=== PATIENT | female | born 1980 | race Caucasian/White ===

== ENCOUNTER → 2016-11-16 | Outpatient (CLI) | payer BC ==
[2016-11-16 10:14] LABS: Basophils % (A) 1 %; CH 32.3; CHCM 32.6; Eosinophils % (A) 1 %; HCT 42.5 % (34.0-46.0); HDW 2.31; HGB 13.4 gm/dL (11.4-16.0); Luc # (Auto) 0.16; Luc % (Auto) 3; Lymphocytes # (A) 1.3 k/uL (1.0-4.8); Lymphocytes % (A) 24 %; MCH 31.5 pg (25.0-35.0); MCHC 31.7 g/dL (31.0-37.0); MCV 99.5 fL (80.0-100.0); Mean Platelet Volume 8.4; Monocytes # (A) 0.4 k/uL (0-1.0); Monocytes % (A) 6 %; Neutrophils # (A) 3.6 k/uL (1.3-7.7); Neutrophils % (A) 66 %; RBC 4.27 m/uL (3.80-5.40); RDW 12.5 % (11.5-15.5); WBC 5.5 k/uL (3.8-10.6); WBC (Perox) 5.83
[2016-11-16 10:41] LABS: Anion Gap 8 mmol/L; Blood Urea Nitrogen 9 mg/dL (7-17); Calcium 9.3 mg/dL (8.4-10.2); Carbon Dioxide 24 mmol/L (22-30); Chloride 106 mmol/L (98-107); Cholesterol 175 mg/dL (<200); Glucose 85 mg/dL (74-99); HDL Cholesterol 68 mg/dL (40-60); Non-African American GFR(MDRD) >60 (>60 ml/min/1.73 sqM); Potassium 4.7 mmol/L (3.5-5.1); Sodium 138 mmol/L (137-145); Triglycerides 57 mg/dL (<150)
== END | disposition home or self-care (01) ==
LOC: LABWHC1 09:45
PROVIDERS: ATTEND Nurse Practitioner Family
DX: R53.83 Other fatigue (principal); Z13.29 Encounter for screening for other suspected endocrine disorder; Z13.220 Encounter for screening for lipoid disorders; Z13.21 Encounter for screening for nutritional disorder
CPT/HCPCS: 36415; 80048; 80061; 82306; 84439; 84443; 85025

== ENCOUNTER → 2017-04-17 | Outpatient (CLI) | payer BC ==
--- NOTE | 2017-04-17 16:54 | XR ---
Abdomen HISTORY: Constipation, irregular menses Frontal view of the abdomen on 2 images Bone mineralization, joint spaces and alignment are maintained. Lung bases are clear. There is an ind eterminate calcification in the right upper quadrant measuring 8 mm. No pneumoperitoneum or bowel obs truction. IMPRESSION: Possible gallstone right upper quadrant. Nonobstructive bowel gas pattern.
--- NOTE | 2017-04-18 07:47 | US ---
EXAMINATION TYPE: US pelvic complete DATE OF EXAM: 04/17/2017 COMPARISON: NONE CLINICAL HISTORY: N92.6 Irregular Menses, R14.0 Gaseous. Patient stated is 23 days late for menses; f amily history of colon cancer; constipated with low back pain: TECHNIQUE: Transvaginal (TV) Date of LMP: approximately first week of February EXAM MEASUREMENTS: Uterus: 8.9 x 5.4 x 4.6 cm Endometrial Stripe: 0.7 cm Right Ovary: 3.8 x 2.1 x 3.1 cm Left Ovary: 3.3 x 2.8 x 2.2 cm 1. Uterus: Anteverted; multiple Nabothian cysts in CX with largest complex cyst = 1.1 x 1.0 x 0.8cm; ADALBERTO hypoechoic oval mass = 0.5 x 0.8 x 0.5cm (possible fibroid) 2. Endometrium: unable to correlate thickness with early February LMP 3. Right Ovary: follicular cyst = 2.5 x 2.2 x 1.9cm 4. Left Ovary: multifollicular with largest = 1.6 x 1.2 x 1.3cm (color flow is seen in bilateral ovary) 5. Bilateral Adnexa: wnl 6. Posterior cul-de-sac: small amount of free fluid = 0.8 x 2.2 x 2.0cm IMPRESSION: 1. Bilateral functional ovarian cysts. 2. Small amount of free fluid within the cul-de-sac. 3. Cervical nabothian cysts.
== END | disposition home or self-care (01) ==
LOC: RADUSWWP 14:55
PROVIDERS: ATTEND Family Medicine
DX: K59.00 Constipation, unspecified (principal); N83.201 Unspecified ovarian cyst, right side; N83.202 Unspecified ovarian cyst, left side; N88.8 Other specified noninflammatory disorders of cervix uteri
CPT/HCPCS: 74000; 76830

== ENCOUNTER → 2017-04-27 | Outpatient (CLI) | payer BC ==
--- NOTE | 2017-04-27 08:24 | US ---
EXAMINATION TYPE: US abdomen complete DATE OF EXAM: 04/27/2017 COMPARISON: X Ray 2017 CLINICAL HISTORY: K80.80 Other cholelithiasis without obstruction; epigastric pain radiating to back. EXAM MEASUREMENTS: Liver Length: 15.3 cm Gallbladder Wall: 0.2 cm CBD: 0.3 cm Spleen: 7.5 cm Right Kidney: 9.3 x 5.1 x 3.8 cm Left Kidney: 9.4 x 4.8 x 5.2 cm Pancreas: wnl Liver: wnl Gallbladder: fold at fundus with non mobile,shadowing stone within, stone size = 0.9 x 0.8 x 0.4; wa ll thickness is wnl Evidence for sonographic Parr's sign: No CBD: wnl Spleen: wnl Right Kidney: wnl Left Kidney: wnl Upper IVC: wnl Abd Aorta: wnl IMPRESSION: Cholelithiasis without sonographic evidence of cholecystitis.
== END | disposition home or self-care (01) ==
LOC: RADUSWWP 07:07
PROVIDERS: ATTEND Family Medicine
DX: K80.20 Calculus of gallbladder without cholecystitis without obstruction (principal)
CPT/HCPCS: 76700

== ENCOUNTER 2017-05-22 07:41 | Day surgery (SDC) | payer BC ==
[2017-05-17 11:13] VITALS: BMI 27.1
[~2017-05-22 07:41] MED LIST: DEXAMETHASONE SOD PHOSPHATE 10 MG/ML 1 ML VIAL IV ONE; HEPARIN SODIUM,PORCINE 5,000 UNIT/ML 1 ML VIAL SQ ONE; LACTATED RINGERS 1,000 ML IV SCH; LIDOCAINE 1% 20 ML VIAL (10MG/ML) FOR IV START INTRADERMA PRN; MIDAZOLAM 2 MG/2 ML VIAL IV PRN; SCOPOLAMINE 1.5MG/72HR PATCH TRANSDERM ONE; ceFAZolin 2 GM in SODIUM CHLORIDE 0.9% 100 ML IVPB ONE
[2017-05-22 08:11] VITALS: RESP 16
[2017-05-22] MEDS: ONDANSETRON 4 MG/2 ML VIAL IVP ONE ×2 (08:18→13:26)
--- NOTE | 2017-05-22 09:24 | P.GSHP ---
History of Present Illness H&P Date: 05/22/17 Chief Complaint: Right upper quadrant pain This is a 28-year-old female who's had complaints of right quadrant pain. Her recent(s) was evidence of cholelithiasis. She presents today for laparoscopic cholecystectomy. Past Medical History Additional Past Medical History / Comment(s): gallstones,freq constipation History of Any Multi-Drug Resistant Organisms: None Reported Additional Past Surgical History / Comment(s): LEEP procedure Past Anesthesia/Blood Transfusion Reactions: No Reported Reaction Additional Past Anesthesia/Blood Transfusion Reaction / Comment(s): no hx blood transfusion Smoking Status: Former smoker - Past Family History Mother Family Medical History: Cancer Additional Family Medical History / Comment(s): breast Father Additional Family Medical History / Comment(s): pt states "has clotting disorder ,does not know name." Sister(s) Additional Family Medical History / Comment(s): pt states "has clotting disorder ,does not know name." Medications and Allergies Home Medications Medication Instructions Recorded Confirmed Type No Known Home Medications [No 05/17/17 05/17/17 History Known Home Medications] Allergies Allergy/AdvReac Type Severity Reaction Status Date / Time No Known Allergies Allergy Verified 05/17/17 11:04 Surgical - Exam Vital Signs Temp Pulse Resp BP Pulse Ox 96.8 F L 74 16 103/70 99 05/22/17 08:04 05/22/17 08:04 05/22/17 08:04 05/22/17 08:04 05/22/17 08:04 - General well developed, no distress - Eyes PERRL - ENT normal pinna - Neck no masses - Respiratory normal expansion - Cardiovascular Rhythm: regular - Abdomen Abdomen: soft, non tender Assessment and Plan Plan: Cholelithiasis. We'll perform laparoscopic cholecystectomy
[2017-05-22] MEDS ORDERED: MIDAZOLAM 2 MG/2 ML VIAL ONE (09:47)
[2017-05-22] MEDS ORDERED: SUCCINYLCHOLINE CHLORIDE 100 MG/5 ML SYR IV ONE (09:47)
[2017-05-22] MEDS ORDERED: fentaNYL (PF) 50 MCG/ML 2 ML AMP ONE (09:47)
[2017-05-22] MEDS ORDERED: ROCURONIUM BROMIDE 10 MG/ML 10 ML VIAL IV ONE (09:47)
[2017-05-22] MEDS ORDERED: GLYCOPYRROLATE 0.2 MG/ML 2 ML VIAL ONE (09:47)
[2017-05-22] MEDS ORDERED: LIDOCAINE 1% INJ 10MG/ML (20 ML MDV) ONE (09:47)
[2017-05-22] MEDS ORDERED: NEOSTIGMINE 1 MG/ML 10 ML VIAL ONE (09:47)
[2017-05-22] MEDS ORDERED: PROPOFOL 10 MG/ML 20 ML VIAL IV ONE (09:47)
[2017-05-22] MEDS ORDERED: LIDOCAINE 2%-EPI 1:100,000 20 ML VIAL SQ ONE (10:05)
[2017-05-22] MEDS ORDERED: LACTATED RINGERS 1,000 ML IV ONE (10:18)
--- NOTE | 2017-05-22 10:36 | P.OP ---
Date of Procedure: 05/22/17 Preoperative Diagnosis: Cholelithiasis Postoperative Diagnosis: Cholelithiasis Procedure(s) Performed: Laparoscopic cholecystectomy Anesthesia: QUINCY Surgeon: Janak Hernandez Estimated Blood Loss (ml): 5 Pathology: other (Gallbladder) Condition: stable Disposition: PACU Description of Procedure: The patient was placed on the operating table. The patient received a general endotracheal tube anesthesia. The patients abdomen was prepped and draped in the usual sterile fashion. Through an infraumbilical stab incision, the fascia of the anterior abdominal wall was grasped with a pair of Kochers and then the Veress needle was placed in the peritoneal cavity. Position of the Veress needle was confirmed with positive drop test. The abdomen was then insufflated. After adequate insufflation, the 10 mm trocar was placed in the peritoneal cavity. Following this the laparoscope was placed in the peritoneal cavity. The patient was placed in the head-up, right side up position and then a 5 mm trocar was placed in the right lateral and right subcostal position under direct visualization. A 8 mm trocar was placed in the epigastric position. The gallbladder was grasped in the fundus and infundibulum. Traction on the gallbladder was placed in the lateral and the cephalad positions. The triangle of Calot was visualized.. The cystic duct was bluntly dissected until the union of the cystic duct and common bile duct was seen. The cystic duct was then divided and sealed with the Harmonic scissors. A PDS Endoloop was then placed throughout the cystic duct stump. The cystic artery divided and sealed with the Harmonic scissors. The gallbladder was then removed from the liver bed using Harmonic scissors. The gallbladder was then extracted through the epigastric port site. Operative field was checked for any bleeding spots and Harmonic scissors was used to coagulate the liver bed. The abdomen was irrigated. The trocars were removed. The skin was closed using interrupted 3-0 Vicryl suture. Dermabond dressing were applied. The patient tolerated the procedure well.
[2017-05-22 10:41] VITALS: TEMP 97.6
[2017-05-22] MEDS: HYDROmorphone 1 MG/ML 1 ML SYRINGE IVP PRN ×2 (10:49→10:54)
[2017-05-22] MEDS ORDERED: KETOROLAC 30 MG/ML 1 ML VIAL IVP ONE (10:56)
[2017-05-22 13:49] VITALS: BP 117/68; PULSE 93
== END 2017-05-22 14:33 | disposition home or self-care (01) ==
LOC: OR 07:41
PROVIDERS: ATTEND Surgery
DX: K80.10 Calculus of gallbladder with chronic cholecystitis without obstruction (principal); Z87.891 Personal history of nicotine dependence
CPT/HCPCS: 81025; 88304; 47562; J2250; J1644; J1100; J2710; J0690; J2405; J2001; J3010; J1885; J1170; J0330; J2704

== ENCOUNTER → 2019-09-26 | Outpatient (CLI) | payer OTHER ==
--- NOTE | 2019-09-26 11:19 | US ---
EXAMINATION TYPE: US pelvic complete DATE OF EXAM: 09/26/2019 COMPARISON: us 04/17/2017 CLINICAL HISTORY: N93.9 abnormal uterine and vaginal bleeding. TECHNIQUE: Transabdominal (TA). Date of LMP: 08/25/19 lasted until 09/20/19 Started oral control 09/17/19 EXAM MEASUREMENTS: Uterus: 10.6 x 4.5 x 5.0 cm Endometrial Stripe: 1.4 cm Right Ovary: 2.7 x 1.0 x 1.2 cm Left Ovary: 2.8 x 1.8 x 1.6 cm 1. Uterus: Anteverted, small hypoechoic area, seen previously measuring 0.9 x 0.7 x 1.2cm 2. Endometrium: Within normal limits for a premenopausal female 3. Right Ovary: wnl 4. Left Ovary: wnl 5. Bilateral Adnexa: wnl 6. Posterior cul-de-sac: wnl IMPRESSION: 1. Endometrial thickness is within normal limits for a premenopausal female measuring 1.4 cm. 2. Hypoechoic area in the lower uterine segment anteriorly measuring 1.2 cm may relate to a small lei omyoma and was seen on the prior exam of 2016. Alternatively if the patient has had a sectio n this could represent a small amount of fluid within the scar.
== END | disposition home or self-care (01) ==
LOC: RADUSWWP 10:11
PROVIDERS: ATTEND Family Medicine
DX: D25.9 Leiomyoma of uterus, unspecified (principal)
CPT/HCPCS: 76856

== ENCOUNTER → 2019-09-26 | Outpatient (CLI) | payer OTHER | END | disposition home or self-care (01) | LOC: RADUSWWP 07:38 | PROVIDERS: ATTEND Family Medicine | DX: Z53.9 Procedure and treatment not carried out, unspecified reason (principal) ==